=== PATIENT | female | born 1955 | race Caucasian/White ===

== ENCOUNTER 2023-04-04 08:44 | Outpatient (OUT) | payer MEDICARE, SELFPAY ==
--- NOTE | 2023-04-04 09:01 | PM.CN ---
Consult Note: HPI Data of Consult Patient: known to practice within the last 3 years Consult date: 04/04/23 Requesting Physician: PATTI REBOLLEDO NP Primary Care Provider: TREMAINE CRAIN Consult Narrative Reason for consult: leg pain Narrative: She is here for f/u of RFA of lumbar area done 03/05/23. She recieved 80% relief continued through today with increased function. She has right leg pain today. Pain starts in right low back and goes down right leg to right calf. No paresthesias. We discussed the TFNB procedure. She will call to schedule if pain gets worse. Baclofen refilled. No new bowel or bladder or sensorimotor sx. JANESSA 16 cc:: CC: PATTI REBOLLEDO NP Review of Systems ROS Status of ROS 10 or more systems reviewed and unremarkable except as noted in history and below Musculoskeletal Reports: back pain and extremity pain Meds Home Medications and Allergies Home Medications Medication Instructions Recorded Confirmed Type acetaminophen 500 mg tablet 500 mg PO QID PRN pain 04/04/23 04/04/23 History atorvastatin 10 mg tablet 10 mg PO DAILY 04/04/23 04/04/23 History baclofen 10 mg tablet 10 mg PO BID 04/04/23 04/04/23 History biotin 5 mg capsule 5 mg PO DAILY 04/04/23 04/04/23 History calcium 600 mg-D3 800 unit-mag11 1 tab PO DAILY 04/04/23 04/04/23 History 50 yy-isaf-[id number]-rio-s.borat tablet (Caltrate 600-D Plus Minerals) levothyroxine 25 mcg capsule 25 mcg PO DAILY 04/04/23 04/04/23 History rosuvastatin 5 mg tablet 5 mg PO DAILY 04/04/23 04/04/23 History Allergies Allergy/AdvReac Type Severity Reaction Status Date / Time No Known Drug Allergies Allergy Verified 04/04/23 09:05 Exam Constitutional Documenting provider has reviewed patient's vital signs: yes Common normals: no apparent distress, average body habitus, oriented x3, no limitations, healthy appearing, alert and well nourished General appearance: cooperative, comfortable, well developed and well hydrated Orientation/consciousness: Yes awake, Yes oriented to person, Yes oriented to place and Yes oriented to time HENMT Common normals: normocephalic, external nose normal and moist oral mucous membranes Respiratory Common normals: normal respiratory effort and no retractions Effort & inspection: able to speak in complete sentences Back & Pelvis Common normals: thoracic and lumbar spine normal to inspection and no thoracic nor lumbar tenderness Lumbar spine/lower back: normal to inspection, lumbar ROM normal, pain with ROM, straight leg raise negative bilaterally and other soft tissue findings (positive facet loading) Extremity Common normals: normal to inspection, full ROM, normal capillary refill and no pedal edema General: normal exam except as noted Right lower extremity: upper leg Other: muscle strength 5/5 bilat LE with intact sensation. She does state right leg feels heavier. Assessment and Plan Assessment and Plan (1) Lumbar radiculopathy: (2) Lumbar spondylosis: Plan Discussed TFNB procedure and educational material given f/u 6 months or sooner if needed baclofen refill
== END 2023-04-04 08:45 ==
PROVIDERS: PCP Family Medicine; Visit Provider Nurse Practitioner
DX: M47.26 Other spondylosis with radiculopathy, lumbar region (principal)
CPT/HCPCS: G0463